=== PATIENT | male | born 1980 | race African-American/Black ===

== ENCOUNTER 2020-02-04 11:31 | Inpatient (IN) | payer OTHER ==
--- NOTE | 2020-02-04 11:50 | BHS.RME ---
Substance Use & Tx History - Substance Use History Alcohol Substance amount: 1 six pack beers Frequency of use: Daily Substance route: Oral Date of Last Use: 02/04/20 (8AM started at age 13) PCP Substance amount: 1 blunt Frequency of use: Daily Substance route: Smoking Date of Last Use: 02/03/20 (started age 18) Nicotine Substance amount: 1 cigg Frequency of use: Less than 3 times per week Substance route: Smoking, Vaping Date of Last Use: 02/04/20 (started vaping at age 38) Physical/Psych/Mental Status - Behavior General Behavior: Increased activity (restlessness, agitation) Eye Contact: Normal - Cooperativeness Cooperativeness: Cooperative - Thinking Thought Processes: Tight, Logical, Goal Directed - Physical Health Problems Is patient presently having any pain?: No Does patient presently have any injuries (include location): No Does patient currently have a fever: No Is patient : No CIWA Nausea/Vomitin Muscle Tremors: 3 Anxiety: 3 Agitation: 3 Paroxysmal Sweats: 3 Orientation: 0-Oriented Tacttile Disturbances: 0-None Auditory Disturbances: 0-None Visual Disturbances: 0-None Headache: 0-None Present CIWA-Ar Total Score: 15
--- NOTE | 2020-02-04 13:45 | HP ---
CIWA Score Nausea/Vomitin Muscle Tremors: 3 Anxiety: 3 Agitation: 3 Paroxysmal Sweats: 3 Orientation: 0-Oriented Tacttile Disturbances: 0-None Auditory Disturbances: 0-None Visual Disturbances: 0-None Headache: 0-None Present CIWA-Ar Total Score: 15 - Admission Criteria OASAS Guidelines: Admission for Medically Managed Detox: Requires at least one of the followin. CIWA greater than 12 2. Seizures within the past 24 hours 3. Delirium tremens within the past 24 hours 4. Hallucinations within the past 24 hours 5. Acute intervention needed for co occurring medical disorder 6. Acute intervention needed for co occurring psychiatric disorder 7. Severe withdrawal that cannot be handled at a lower level of care (continued vomiting, continued diarrhea, abnormal vital signs) requiring intravenous medication and/or fluids 8. Admitting History and Physical - Smoking History Smoking history: Current every day smoker Have you smoked in the past 12 months: Yes Aproximately how many cigarettes per day: 3 If you are a former smoker, when did you quit?: Pt is vaping. - Alcohol/Substance Use Hx Alcohol Use: Yes Admission ROS [facility] Chief Complaint: "I really need help." Allergies/Adverse Reactions: Allergies Allergy/AdvReac Type Severity Reaction Status Date / Time No Known Allergies Allergy Verified 02/04/20 13:28 History of Present Illness: 39 year old male with history of alcohol dependence with withdrawal, nicotine dependence, and PCP use disorder. He was last at [facility] 10/28-11/01/19 and left AMA. He has HIV disease, asthma, anemia, Bipolar, PTSD. He is seeking detox again and will complete detox this time. He will sign behavioral contract to complete treatment this time. - Substance Use History Alcohol Substance amount: 1 six pack beers Frequency of use: Daily Substance route: Oral Date of Last Use: 02/04/20 (8AM started at age 13) He has had blackouts, last one 1 day ago, and endorses the need for an eye block cleaner daily. PCP Substance amount: 1 blunt Frequency of use: Daily Substance route: Smoking Date of Last Use: 02/03/20 (started age 18) Nicotine Substance amount: 1 cigg Frequency of use: Less than 3 times per week Substance route: Smoking, Vaping Date of Last Use: 02/04/20 (started vaping at age 38) PMH: HIV, Asthma, Anemia Psurg: Right ing. Herniorrhaphy Psych: Bipolar, PTSD He is living with family in the [place] and has no legal issues pending. MAO=0.108 CIWA=15 He meets criteria for detox as he has poor recovery environment, multiple medical co-morbidities and psychiatric co-morbidities. Exam Limitations: No Limitations - Ebola screening Have you traveled outside of the country in the last 21 days: No Have you had contact with anyone from an Ebola affected area: No Have you been sick,other than usual withdrawal symptoms: No Do you have a fever: No - Review of Systems Constitutional: Diaphoresis, Unintentional Wgt. Loss EENT: reports: No Symptoms Reported Respiratory: reports: No Symptoms reported Cardiac: reports: No Symptoms Reported GI: reports: No Symptoms Reported : reports: No Symptoms Reported Musculoskeletal: reports: No Symptoms Reported Integumentary: reports: No Symptoms Reported Neuro: reports: Tremors Endocrine: reports: No Symptoms Reported Hematology: reports: No Symptoms Reported Psychiatric: reports: Judgement Intact, Mood/Affect Appropiate, Orientated x3, Agitated, Anxious Other Systems: Reviewed and Negative Patient History - Patient Medical History Hx Anemia: Yes (Not on medication) Hx Asthma: No Hx Chronic Obstructive Pulmonary Disease (COPD): No Hx Cancer: No Hx Cardiac Disorders: No Hx Congestive Heart Failure: No Hx Hypertension: No Hx Hypercholesterolemia: No Hx Pacemaker: No HX Cerebrovascular Accident: No Hx Seizures: Yes (Pt states he had a seizure in the past.) Hx Dementia: No Hx Diabetes: No Hx Gastrointestinal Disorders: No Hx Liver Disease: No Hx Genitourinary Disorders: No Hx Sexually Transmitted Disorders: No Hx Renal Disease (ESRD): No Hx Thyroid Disease: No Hx Human Immunodeficiency Virus (HIV): Yes (Diagnosed 2004 ) Hx Hepatitis C: No Hx Depression: Yes Hx Suicide Attempt: No Hx Bipolar Disorder: Yes (Risperdal) Hx Schizophrenia: No - Patient Surgical History Past Surgical History: Yes Hx Abdominal Surgery: Yes (HERNIA REPAIR) Other Surgical History: Hernia repair 2005 - PPD History Previous Implant?: Yes Documented Results: Negative w/proof Implanted On Prior R Admission?: No Date: 10/31/19 Results: 0 mm PPD to be Administered?: No - Smoking Cessation Smoking history: Current every day smoker Have you smoked in the past 12 months: Yes Aproximately how many cigarettes per day: 3 If you are a former smoker, when did you quit?: Pt is vaping. Hx Chewing Tobacco Use: No Initiated information on smoking cessation: Yes 'Breaking Loose' booklet given: 02/04/20 - Substances abused Alcohol Substance route: Oral Frequency: Daily Amount used: 1 6pk beer Age of first use: 13 Date of last use: 02/04/20 PCP Substance route: Smoking Frequency: Daily Amount used: 1-2 bags Age of first use: 14 Date of last use: 02/03/20 Admission Physical Exam BHS - Vital Signs Vital Signs: Vital Signs - 24 hr 02/04/20 13:30 Temperature 97.7 F Pulse Rate 84 Respiratory 18 Rate Blood Pressure 131/73 - Physical General Appearance: Yes: Disheveled, Thin, Tremorous, Irritable, Sweating, Anxious HEENTM: Yes: EOMI, Hearing grossly Normal, Normal ENT Inspection, Normocephalic, Normal Voice, MELY, Pharynx Normal, Tm's normal Respiratory: Yes: Chest Non-Tender, Lungs Clear, Normal Breath Sounds, No Respiratory Distress, No Accessory Muscle Use Neck: Yes: No masses,lesions,Nodules, Supple, Trachea in good position Breast: Yes: Within Normal Limits Cardiology: Yes: Regular Rhythm, S1, S2, Tachycardia Abdominal: Yes: Normal Bowel Sounds, Non Tender, Flat, Soft, Surgical Scar Genitourinary: Yes: Within Normal Limits Back: Yes: Normal Inspection Musculoskeletal: Yes: full range of Motion, Gait Steady, Pelvis Stable Extremities: Yes: Normal Capillary Refill, Normal Inspection, Normal Range of Motion, Non-Tender Neurological: 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: 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 NML intact, Fully Oriented, Alert, Motor Strength 5/5, Normal Mood/Affect, Normal Response Integumentary: Yes: Normal Color, Dry, Warm Lymphatic: Yes: Within Normal Limits - Diagnostic (1) Alcohol dependence with withdrawal, uncomplicated Current Visit: Yes Status: Acute (2) Cannabis dependence Current Visit: Yes Status: Acute (3) Phencyclidine dependence Current Visit: Yes Status: Acute (4) Substance induced mood disorder Current Visit: Yes Status: Acute (5) Substance-induced sleep disorder Current Visit: Yes Status: Acute (6) Anemia Current Visit: Yes Status: Chronic Qualifiers: Anemia type: unspecified type Qualified Code(s): D64.9 - Anemia, unspecified (7) Asthma Current Visit: Yes Status: Chronic Qualifiers: Asthma severity: mild Asthma persistence: unspecified Asthma complication type: unspecified Qualified Code(s): J45.909 - Unspecified asthma, uncomplicated (8) Bipolar disorder Current Visit: Yes Status: Chronic Cleared for Admission S - Detox or Rehab [facility] Level of Care: Medically Managed Detox Regimen/Protocol: Librium Claeared for Rehab Admission: No Screened but not Admitted - Documentation of Visit Screened but not Admitted: No Breathalyzer - Breathalyzer Breathalyzer: 0.108 Vital Signs - Vital Signs Vital signs refused: No Temperature: 97.7 F Pulse Rate: 84 Respiratory Rate: 18 Blood Pressure: 131/73 BP Location: Left Arm Blood Pressure position: Sitting - Height Height: 6 ft - Weight Weight: 150 lb (3) Weight measurement method: Standing scale - BMI Body Mass Index (BMI): 20.3 - Bowel Function Bowel Movement: No Urine Drug Screen - Test Device Lot number: [id number] Expiration date: 08/21/21 - Control Is test valid?: Yes - Results Drug screen NEGATIVE: Yes Inpatient Rehab Admission - Rehab Decision to Admit Inpatient rehab admission?: No
[2020-02-04 13:52] VITALS: BMI 20.3
[2020-02-04] MEDS ORDERED: ONDANSETRON *ODT* 4 MG TABLET SL PRN (13:52)
[2020-02-04] MEDS ORDERED: IBUPROFEN 400 MG TABLET (FP) PO PRN (13:52)
[2020-02-04] MEDS ORDERED: MENTHOL/PHENOL 1 EACH UD MM PRN (13:52)
[2020-02-04] MEDS ORDERED: METHOCARBAMOL 500 MG TABLET PO PRN (13:52)
[2020-02-04] MEDS ORDERED: chlordiazePOXIDE HCL 25 MG CAPSULE PO PRN (13:52)
[2020-02-04] MEDS ORDERED: MAG HYDROX/AL HYDROX/SIMETH 30 ML UNIT-DOSE CUP PO PRN (13:52)
[2020-02-04] MEDS ORDERED: MAGNESIUM CITRATE 300 ML BOTTLE PO PRN (13:52)
[2020-02-04] MEDS ORDERED: NICOTINE POLACRILEX 2 MG GUM BUC PRN (13:52)
[2020-02-04] MEDS ORDERED: MAGNESIUM HYDROX 2400MG/30ML ORAL SUSPENSION 30 ML CUP PO PRN (13:52)
[2020-02-04] MEDS ORDERED: ACETAMINOPHEN 325 MG TABLET (FP) PO PRN ×2 (13:52)
[2020-02-04] MEDS ORDERED: BISMUTH SUBSALICYLATE 262 MG/15 ML BTL PO PRN (13:52)
[2020-02-04] MEDS: NICOTINE 7 MG/24 HOURS TOPICAL PATCH TD SCH (14:41)
[2020-02-04] MEDS: hydrOXYzine PAMOATE 25 MG CAPSULE (FP) PO SCH ×3 (14:42→22:31)
[2020-02-04] MEDS: PRENATAL VITAMINS W/ FOLIC ACID TABLET (FP) PO SCH (14:42)
[2020-02-04] MEDS: chlordiazePOXIDE HCL 25 MG CAPSULE PO SCH ×3 (14:42→22:31)
[2020-02-04 20:11] LABS: HEMATOCRIT 44.2 % (35.4-49); HEMOGLOBIN 14.4 GM/dL (11.7-16.9); MCH 30.1 pg (25.7-33.7); MCHC 32.7 g/dl (32.0-35.9); MEAN CELL VOLUME 92.1 fl (80-96); MEAN PLT VOLUME 9.2 fl (7.5-11.1); PLATELET COUNT 158 K/MM3 (134-434); RDW 13.2 % (11.9-15.9); WHITE BLOOD COUNT 9.1 K/mm3 (4.0-10.0)
[2020-02-04 20:18] LABS: ALBUMIN 3.8 g/dl (3.4-5.0); BILIRUBIN,TOTAL 0.4 mg/dL (0.2-1); BLOOD UREA NITROGEN 17.6 mg/dL (7-18); CALCIUM 8.3 mg/dL (8.5-10.1); CREATININE 1.2 mg/dL (0.55-1.3); POTASSIUM 3.5 mmol/L (3.5-5.1)
[2020-02-04] MEDS: THIAMINE HCL 100 MG TABLET (FP) PO SCH (22:31)
[2020-02-04] MEDS: MELATONIN 5 MG TABLETS PO SCH (22:31)
[2020-02-05] MEDS: hydrOXYzine PAMOATE 25 MG CAPSULE (FP) PO SCH ×5 (05:48→22:41)
[2020-02-05] MEDS: chlordiazePOXIDE HCL 25 MG CAPSULE PO SCH ×4 (05:48→22:41)
[2020-02-05] MEDS: DARUNAVIR/COB/EMTRI/TENOF (SYMTUZA) TABLET (NF) PO SCH (10:09)
--- NOTE | 2020-02-05 10:14 | CONSULT ---
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 Patient admitted to for alcohol and PCP dependence. Substance Abuse History: - Smoking Cessation. Smoking history: Current every day smoker. Have you smoked in the past 12 months: Yes. Aproximately how many cigarettes per day: 3. If you are a former smoker, when did you quit?: Pt is vaping. Hx Chewing Tobacco Use: No. Initiated information on smoking cessation: Yes. 'Breaking Loose' booklet given: 02/04/20. - Substances abused. Alcohol. Substance route: Oral. Frequency: Daily. Amount used: 1 6pk beer. Age of first use: 13. Date of last use: 02/04/20. PCP. Substance route: Smoking. Frequency: Daily. Amount used: 1-2 bags. Age of first use: 14. Date of last use: 02/03/20 Medical History: Significant for bronchial asthma, HIV+ diagnosed in 2004 and history of anemia and right inguinal hernia repair in 2005. Psychiatric History: Mr. Mejía presents as guarded and a poor historian. States that his first psychiatric contact was as a child after his mother comitted suicide. He denies receiving psychiatric medications, only received therapy. Mr. Mejía reports history of one psychiatric hospitalization at [facility] in [place], [place] approximately 2 years ago. He said that he was diagnosed with Bipolar Disorder and treated with Risperal 1 mg/day. States that he is provided with outpatient psychiatric care at [facility] and continues to take risperdal 1mg daily. History of one suicide attempt at 14 years of age. At present denies auditory/ visual hallucination, suicidal/ homicidal ideation. Physical/Sexual Abuse/Trauma History: denies. Mental Status Exam - Mental Status Exam Alert and Oriented to: Time, Place, Person Cognitive Function: Good Patient Appearance: Well Groomed Mood: Withdrawn Affect: Mood Congruent Patient Behavior: Fatigued, Guarded, Cooperative Speech Pattern: Clear Voice Loudness: Moderately Soft/Quiet Thought Process: Goal Oriented Thought Disorder: Not Present Hallucinations: Denies Suicidal Ideation: Denies Homicidal Ideation: Denies Insight/Judgement: Poor Sleep: Poorly Appetite: Fair Muscle strength/Tone: Normal Gait/Station: Normal Psychiatric Findings - Problem List (Pearson 1, 2,3) (1) Alcohol dependence with withdrawal, uncomplicated Current Visit: Yes Status: Acute (2) Phencyclidine dependence Current Visit: Yes Status: Acute (3) Substance induced mood disorder Current Visit: Yes Status: Acute (4) Bipolar disorder Current Visit: Yes Status: Chronic - Initial Treatment Plan Initial Treatment Plan: Psychoeducation provided. Detoxification in progress. Will order Risperdal 1mg daily. Benefits and side effects discussed. Verbal consent given.
[2020-02-05] MEDS: PRENATAL VITAMINS W/ FOLIC ACID TABLET (FP) PO SCH (10:24)
[2020-02-05] MEDS: NICOTINE 7 MG/24 HOURS TOPICAL PATCH TD SCH (10:24)
--- NOTE | 2020-02-05 11:11 | PN ---
S CIWA - CIWA Score Nausea/Vomitin-Mild Nausea/No Vomiting Muscle Tremors: 2 Anxiety: 3 Agitation: 1-Slight > Activity Paroxysmal Sweats: No Perspiration Orientation: 0-Oriented Tacttile Disturbances: 0-None Auditory Disturbances: 0-None Visual Disturbances: 2-Mild Sensitivity Headache: 2-Mild CIWA-Ar Total Score: 11 S Progress Note (SOAP) Subjective: 39 years old male was admitted on 02/04/20 for alcohol withdrawal sx management treating with librium detox regiment alert oriented x 3 prefers to plan for aftercare case discussed with counselor with patient who wants to go to [facility] for 8 months Objective: Vital Signs - 24 hr 02/04/20 02/04/20 02/04/20 13:30 13:52 14:35 Temperature 97.7 F 97.7 F 97.5 F L Pulse Rate 84 84 83 Respiratory 18 18 18 Rate Blood Pressure 131/73 131/73 126/74 O2 Sat by Pulse 100 Oximetry (%) 02/04/20 02/04/20 02/05/20 16:33 20:39 06:44 Temperature 98.1 F 97.1 F L 97.6 F Pulse Rate 83 90 80 Respiratory 18 18 18 Rate Blood Pressure 117/67 115/69 101/69 O2 Sat by Pulse 97 97 Oximetry (%) 02/05/20 08:37 Temperature 97.3 F L Pulse Rate 83 Respiratory 18 Rate Blood Pressure 117/73 O2 Sat by Pulse 97 Oximetry (%) Laboratory Tests 02/04/20 02/04/20 02/04/20 13:00 13:00 13:00 WBC 9.1 RBC 4.80 Hgb 14.4 Hct 44.2 MCV 92.1 MCH 30.1 MCHC 32.7 RDW 13.2 Plt Count 158 MPV 9.2 Sodium 140 Potassium 3.5 Chloride 107 Carbon Dioxide 25 Anion Gap 8 BUN 17.6 Creatinine 1.2 Est GFR (CKD-EPI)AfAm 87.75 Est GFR (CKD-EPI)NonAf 75.72 Random Glucose 94 Calcium 8.3 L Total Bilirubin 0.4 AST 28 ALT 22 Alkaline Phosphatase 65 Total Protein 8.0 Albumin 3.8 Syphilis Serology Non-reactive COVID-19 (REBEKAH) 02/04/20 14:00 WBC RBC Hgb Hct MCV MCH MCHC RDW Plt Count MPV Sodium Potassium Chloride Carbon Dioxide Anion Gap BUN Creatinine Est GFR (CKD-EPI)AfAm Est GFR (CKD-EPI)NonAf Random Glucose Calcium Total Bilirubin AST ALT Alkaline Phosphatase Total Protein Albumin Syphilis Serology COVID-19 (REBEKAH) Not detected lab noted Assessment: 02/05/20 11:20 alcohol withdrawal Plan: librium regiment
[2020-02-05] MEDS: risperiDONE 1 MG TABLET PO SCH (11:55)
[2020-02-05] MEDS: MELATONIN 5 MG TABLETS PO SCH (22:41)
[2020-02-05] MEDS: THIAMINE HCL 100 MG TABLET (FP) PO SCH (22:41)
[2020-02-06] MEDS: hydrOXYzine PAMOATE 25 MG CAPSULE (FP) PO SCH ×2 (05:44→10:35)
[2020-02-06] MEDS: chlordiazePOXIDE HCL 25 MG CAPSULE PO SCH ×2 (05:44→10:35)
[2020-02-06] MEDS: DARUNAVIR/COB/EMTRI/TENOF (SYMTUZA) TABLET (NF) PO SCH (08:34)
[2020-02-06 09:04] VITALS: BP 113/64; PULSE 77; TEMP 97.3
--- NOTE | 2020-02-06 09:40 | PN ---
S CIWA - CIWA Score Nausea/Vomitin-Mild Nausea/No Vomiting Muscle Tremors: 2 Anxiety: 2 Agitation: 0-Normal Activity Paroxysmal Sweats: 1-Minimal Palms Moist Orientation: 0-Oriented Tacttile Disturbances: 0-None Auditory Disturbances: 0-None Visual Disturbances: 2-Mild Sensitivity Headache: 1-Very Mild CIWA-Ar Total Score: 9 S Progress Note (SOAP) Subjective: 39 years old male was admitted on 02/04/20 for alcohol withdrawal sx management treating with librium detox regiment mr garcia prefers to go to [facility] for alcohol abuse treatment and mental health issues mr garcia determines to maintain sober through aftercare referral bmi 20.3 continue ensure supplement Objective: 02/06/20 09:44 Vital Signs - 24 hr 02/05/20 02/05/20 02/05/20 12:31 17:05 20:45 Temperature 98.7 F 97.1 F L 97.1 F L Pulse Rate 65 72 60 Respiratory 16 18 17 Rate Blood Pressure 100/62 104/76 96/58 L O2 Sat by Pulse 97 100 Oximetry (%) 02/06/20 02/06/20 06:31 09:03 Temperature 97.6 F 97.3 F L Pulse Rate 72 77 Respiratory 18 18 Rate Blood Pressure 102/62 113/64 O2 Sat by Pulse 97 97 Oximetry (%) Laboratory Tests 02/04/20 02/04/20 02/04/20 13:00 13:00 13:00 WBC 9.1 RBC 4.80 Hgb 14.4 Hct 44.2 MCV 92.1 MCH 30.1 MCHC 32.7 RDW 13.2 Plt Count 158 MPV 9.2 Sodium 140 Potassium 3.5 Chloride 107 Carbon Dioxide 25 Anion Gap 8 BUN 17.6 Creatinine 1.2 Est GFR (CKD-EPI)AfAm 87.75 Est GFR (CKD-EPI)NonAf 75.72 Random Glucose 94 Calcium 8.3 L Total Bilirubin 0.4 AST 28 ALT 22 Alkaline Phosphatase 65 Total Protein 8.0 Albumin 3.8 Syphilis Serology Non-reactive COVID-19 (REBEKAH) 02/04/20 14:00 WBC RBC Hgb Hct MCV MCH MCHC RDW Plt Count MPV Sodium Potassium Chloride Carbon Dioxide Anion Gap BUN Creatinine Est GFR (CKD-EPI)AfAm Est GFR (CKD-EPI)NonAf Random Glucose Calcium Total Bilirubin AST ALT Alkaline Phosphatase Total Protein Albumin Syphilis Serology COVID-19 (REBEKAH) Not detected lab noted Assessment: 02/06/20 09:45 alcohol withdrawal Plan: librium regiment
[2020-02-06] MEDS: risperiDONE 1 MG TABLET PO SCH (10:34)
[2020-02-06] MEDS: NICOTINE 7 MG/24 HOURS TOPICAL PATCH TD SCH (10:35)
[2020-02-06] MEDS: PRENATAL VITAMINS W/ FOLIC ACID TABLET (FP) PO SCH (10:35)
--- NOTE | 2020-02-06 13:29 | DS ---
[facility] Detox Discharge Summary Admission Date: 02/04/20 Discharge Date: 02/06/20 - History Present History: Alcohol Dependence Additional Comments: 39 years old male was admitted on for alcohol withdrawal sx management treated with librium detox regiment mr garcia prefers to leave the detox today due to in in labor mr garcia is alert oriented x 3 speech clearly coherently ambulating steady gaits General Appearance: Yes: good hygiene, Thin, mild Tremorous, not Irritable, no Sweating, Anxious about in labor HEENTM: Yes: EOMI, Hearing grossly Normal, Normal ENT Inspection, Normocephalic, Normal Voice, MELY, Pharynx Normal, Tm's normal Respiratory: Yes: Chest Non-Tender, Lungs Clear, Normal Breath Sounds, No Respiratory Distress, No Accessory Muscle Use Neck: Yes: No masses,lesions,Nodules, Supple, Trachea in good position Breast: Yes: Within Normal Limits Cardiology: Yes: Regular Rhythm, S1, S2, Tachycardia Abdominal: Yes: Normal Bowel Sounds, Non Tender, Flat, Soft, Surgical Scar Genitourinary: Yes: Within Normal Limits Back: Yes: Normal Inspection Musculoskeletal: Yes: full range of Motion, Gait Steady, Pelvis Stable Extremities: Yes: Normal Capillary Refill, Normal Inspection, Normal Range of Motion, Non-Tender Neurological: Yes: 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-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 NML intact, Fully Oriented, Alert, Motor Strength 5/5, Normal Mood/Affect, Normal Response Integumentary: Yes: Normal Color, Dry, Warm Lymphatic: Yes: Within Normal Limits Pertinent Past History: time for discharge 49 minutes treatment team met with mr garcia to discuss the benefits of librium regiment completion mr garcia insists to leave the detox to his in labor mr garcia may return to infectious disease provider for behavioral and psychosocial therapies - Physical Exam Results Vital Signs: Vital Signs Temperature 97.3 F L 02/06/20 09:03 Pulse Rate 77 02/06/20 09:03 Respiratory Rate 18 02/06/20 09:03 Blood Pressure 113/64 02/06/20 09:03 O2 Sat by Pulse Oximetry (%) 97 02/06/20 09:03 Pertinent Admission Physical Exam Findings: alcohol withdrawal Vital Signs - 24 hr 02/05/20 02/05/20 02/06/20 17:05 20:45 06:31 Temperature 97.1 F L 97.1 F L 97.6 F Pulse Rate 72 60 72 Respiratory 18 17 18 Rate Blood Pressure 104/76 96/58 L 102/62 O2 Sat by Pulse 100 97 Oximetry (%) 02/06/20 09:03 Temperature 97.3 F L Pulse Rate 77 Respiratory 18 Rate Blood Pressure 113/64 O2 Sat by Pulse 97 Oximetry (%) Laboratory Tests 02/04/20 02/04/20 02/04/20 13:00 13:00 13:00 WBC 9.1 RBC 4.80 Hgb 14.4 Hct 44.2 MCV 92.1 MCH 30.1 MCHC 32.7 RDW 13.2 Plt Count 158 MPV 9.2 Sodium 140 Potassium 3.5 Chloride 107 Carbon Dioxide 25 Anion Gap 8 BUN 17.6 Creatinine 1.2 Est GFR (CKD-EPI)AfAm 87.75 Est GFR (CKD-EPI)NonAf 75.72 Random Glucose 94 Calcium 8.3 L Total Bilirubin 0.4 AST 28 ALT 22 Alkaline Phosphatase 65 Total Protein 8.0 Albumin 3.8 Syphilis Serology Non-reactive COVID-19 (REBEKAH) 02/04/20 14:00 WBC RBC Hgb Hct MCV MCH MCHC RDW Plt Count MPV Sodium Potassium Chloride Carbon Dioxide Anion Gap BUN Creatinine Est GFR (CKD-EPI)AfAm Est GFR (CKD-EPI)NonAf Random Glucose Calcium Total Bilirubin AST ALT Alkaline Phosphatase Total Protein Albumin Syphilis Serology COVID-19 (REBEKAH) Not detected lab noted - Treatment Hospital Course: Detox Protocol Followed, Detoxed Safely, Responded well, Discharged Condition Good, Rehab Referral Accepted Patient has Accepted a Rehab Referral to: [facility] out patient - Medication Discharge Medications: Ambulatory Orders Risperidone [Risperdal -] 1 mg PO DAILY 10/29/19 Darunavir/Cob/Emtri/Tenof Alaf [Symtuza [id number] mg Tab] 1 each PO DAILY 02/04/20 Mirtazapine [Remeron -] 15 mg PO HS 02/04/20 - Diagnosis (1) Alcohol dependence with withdrawal, uncomplicated Current Visit: Yes Status: Acute (2) Substance induced mood disorder Current Visit: Yes Status: Suspected (3) Asthma Current Visit: Yes Status: Chronic Qualifiers: Asthma severity: mild Asthma persistence: intermittent Asthma complication type: with status asthmaticus Qualified Code(s): J45.22 - Mild intermittent asthma with status asthmaticus (4) HIV (human immunodeficiency virus infection) Current Visit: Yes Status: Chronic Qualifiers: HIV symptom status: asymptomatic Qualified Code(s): Z21 - Asymptomatic human immunodeficiency virus [HIV] infection status (5) Nicotine dependence Current Visit: Yes Status: Acute Qualifiers: Nicotine product type: cigarettes Substance use status: in withdrawal Qualified Code(s): F17.213 - Nicotine dependence, cigarettes, with withdrawal - AMA Did Patient Leave Against Medical Advice: No CIWA Score - CIWA Score Nausea/Vomitin-Mild Nausea/No Vomiting Muscle Tremors: 2 Anxiety: 2 Agitation: 0-Normal Activity Paroxysmal Sweats: No Perspiration Orientation: 0-Oriented Tacttile Disturbances: 0-None Auditory Disturbances: 0-None Visual Disturbances: 1-Very Mild Sensitivity Headache: 0-None Present CIWA-Ar Total Score: 6
[2020-02-07] MEDS ORDERED: chlordiazePOXIDE HCL 10 MG CAPSULE PO PRN
[2020-02-07] MEDS ORDERED: chlordiazePOXIDE HCL 10 MG CAPSULE PO SCH (05:00)
[2020-02-08] MEDS ORDERED: chlordiazePOXIDE HCL 10 MG CAPSULE PO SCH (05:00)
[2020-02-09] MEDS ORDERED: chlordiazePOXIDE HCL 10 MG CAPSULE PO ONE (05:00)
== END 2020-02-06 13:05 | disposition home or self-care (01) | DRG 775 ==
LOC: YASAS 11:31 → Y3N 13:47
PROVIDERS: ADMIT Allergy & Immunology; ATTEND Allergy & Immunology
PROC: HZ2ZZZZ Detoxification Services for Substance Abuse Treatment (ICD-10-PCS; principal; 2020-02-04)
DX: F10.230 Alcohol dependence with withdrawal, uncomplicated (principal); F16.20 Hallucinogen dependence, uncomplicated; F17.213 Nicotine dependence, cigarettes, with withdrawal; F19.24 Other psychoactive substance dependence with psychoactive substance-induced mood disorder; F19.282 Other psychoactive substance dependence with psychoactive substance-induced sleep disorder; F31.9 Bipolar disorder, unspecified; Z21 Asymptomatic human immunodeficiency virus [HIV] infection status; D64.9 Anemia, unspecified; J45.909 Unspecified asthma, uncomplicated
CPT/HCPCS: 36415; 80053; 85027; 86780; J2794; U0003